=== PATIENT | male | born 1940 | race Caucasian/White ===

== ENCOUNTER 2023-03-22 12:28 | Outpatient (CLI) | payer MEDICARE | END 2023-03-22 12:29 | disposition home or self-care (01) | LOC: CSHCT 12:28 | PROVIDERS: ATTEND Internal Medicine Cardiovascular Disease | DX: Z01.810 Encounter for preprocedural cardiovascular examination (principal); I48.0 Paroxysmal atrial fibrillation; K86.2 Cyst of pancreas; E27.9 Disorder of adrenal gland, unspecified | CPT/HCPCS: 71275 ==